=== PATIENT | female | born 1995 | race Caucasian/White ===

== ENCOUNTER 2018-02-04 04:35 | Emergency (ER) | payer SELFPAY ==
[~2018-02-04] VITALS: Ht 157.5 cm; Wt 42.0 kg
[2018-02-04] MEDS ORDERED: ALBUTEROL/IPRATROPIUM 2.5MG/0.5MG, 3 ML ONE (05:22)
[2018-02-04] MEDS ORDERED: ALBUTEROL/IPRATROPIUM 2.5MG/0.5MG, 3 ML NPPB ONE (05:30)
[2018-02-04 05:44] VITALS: BP 123/72
== END 2018-02-04 07:05 | disposition home or self-care (01) ==
LOC: ED 06:58
DX: J98.01 Acute bronchospasm (principal); J02.8 Acute pharyngitis due to other specified organisms; J31.0 Chronic rhinitis; F41.1 Generalized anxiety disorder; F17.200 Nicotine dependence, unspecified, uncomplicated; M19.90 Unspecified osteoarthritis, unspecified site
CPT/HCPCS: 71046; 93005; 94640; 99284; J7512; J7620